=== PATIENT | female | born 1960 | race Caucasian/White ===

== ENCOUNTER → 2018-10-22 | Outpatient (REF) | payer OTHER ==
[2018-10-22 10:42] LABS: BASO % 0.5 % (0.0-1.0); EOS # 0.2 10^3/uL (0.0-0.50); EOS % 2.8 % (0.0-3.0); HEMATOCRIT 45.1 % (36.0-47.0); HEMOGLOBIN 14.4 g/dl (12.0-15.5); LYMPH # 1.5 10^3/uL (1.5-4.5); LYMPH % 25.2 % (24.0-44.0); MEAN CORPUSCULAR HGB CONC 31.9 g/dl (32.0-36.5); MONO # 0.4 10^3/uL (0.0-0.8); MONO % 7.1 % (0.0-5.0); NEUTROPHILS # 3.9 10^3/uL (1.8-7.7); NEUTROPHILS % 64.1 % (36.0-66.0); PLATELET COUNT, AUTOMATED 246 10^3/uL (150-450); WHITE BLOOD COUNT 6.1 10^3/uL (4.0-10.0)
[2018-10-22 11:22] LABS: ALBUMIN 3.7 GM/DL (3.2-5.2); ALT/SGPT 28 U/L (12-78); BILIRUBIN,TOTAL 0.3 MG/DL (0.2-1.0); BLOOD UREA NITROGEN 17 MG/DL (7-18); CALCIUM LEVEL 9.5 MG/DL (8.8-10.2); CARBON DIOXIDE LEVEL 30 MEQ/L (21-32); CHLORIDE LEVEL 108 MEQ/L (98-107); CHOLESTEROL LEVEL 233 MG/DL (<200); CHOLESTEROL RISK RATIO 4.854 (<5); CREATININE FOR GFR 0.94 MG/DL (0.55-1.30); FREE T4 0.94 NG/DL (0.76-1.46); GLOMERULAR FILTRATION RATE > 60.0 (>45); GLUCOSE, FASTING 79 MG/DL (70-100); HDL CHOLESTEROL 48 MG/DL (>40); LDL CHOLESTEROL 146 MG/DL (<100); NON-HDL-C 185 MG/DL; POTASSIUM SERUM 4.6 MEQ/L (3.5-5.1); SODIUM LEVEL 141 MEQ/L (136-145); TOTAL PROTEIN 7.6 GM/DL (6.4-8.2); TRIGLYCERIDES LEVEL 196 MG/DL (<150)
[2018-10-22 11:38] LABS: HEMOGLOBIN A1c 5.7 %
== END ==
LOC: M SFHCPLAZ 08:15
PROVIDERS: ATTEND Physician Assistant Medical
DX: Z12.11 Encounter for screening for malignant neoplasm of colon (principal); Z13.220 Encounter for screening for lipoid disorders; E66.01 Morbid (severe) obesity due to excess calories

== ENCOUNTER → 2018-11-02 | Outpatient (CLI) | payer OTHER ==
--- NOTE | 2018-11-02 13:30 | REP ---
BILATERAL SCREENING DIGITAL MAMMOGRAM WITH 3D TOMOSYNTHESIS: There are no palpable abnormalities or other breast complaints. The the patient states she has not had a clinical breast examination in over a year. The the patient states she performs self-breast examinations 10 times per year. The Tyrer-Cuzick Score is: 7.6% . Comparison is 08/01/2008. There are scattered areas of fibroglandular density. There is no dominant mass, micro calcific cluster or architectural distortion that would indicate malignancy. There are no additional findings on 3D tomosynthesiss. There is no change from the prior study. Impression: BIRADS/ACR category 1 mammogram. Negative. Recommendation: Routine annual screening mammography. This mammogram was interpreted with the aid of a FDA approved computer-aided detection system. A. Negative mammogram reports should not delay biopsy if a dominant or clinically suspicious mass is present. B. Not all breast cancers are identified by mammography or tomosynthesis. C. Adenosis and dense breasts may obscure an underlying neoplasm. Patient letter M1. Electronically Signed by Miguel Jett MD 11/02/2018 01:22 P
== END ==
LOC: M WHC 12:16
PROVIDERS: ATTEND Physician Assistant Medical
DX: Z12.31 Encounter for screening mammogram for malignant neoplasm of breast (principal)

== ENCOUNTER 2018-12-25 07:38 | Day surgery (SDC) | payer OTHER ==
[~2018-12-25] VITALS: Ht 162.6 cm; Wt 132.9 kg
[~2018-12-25 07:38] MED LIST: ATOR1TAB21 PO; NS 1,000 ML IV ONE
[2018-12-25] MEDS ORDERED: PROPOFOL 500 MG/50 ML VIAL As Ordered ONE (09:39)
[2018-12-25] MEDS ORDERED: LIDOCAINE 2% INJ 100 MG/5 ML SDV (FOR ANES.) As Ordered ONE (09:39)
--- NOTE | 2018-12-25 09:56 | ROOR ---
Patient Name: Torri Cm Procedure Date: 12/25/2018 9:06 AM Date of : 1960 Age: 58 Room: [facility] Gender: Female Note Status: Finalized Procedure: Colonoscopy Indications: Screening for colorectal malignant neoplasm Providers: Robin Gonsales MD Referring MD: Tanya ANDREWS Requesting Provider: Medicines: Monitored Anesthesia Care Complications: No immediate complications. Procedure: Pre-Anesthesia Assessment: - Prior to the procedure, a History and Physical was performed, and patient medications and allergies were reviewed. The patient is competent. The risks and benefits of the procedure and the sedation options and risks were discussed with the patient. All questions were answered and informed consent was obtained. Patient identification and proposed procedure were verified by the physician, the nurse and the anesthesiologist in the procedure room. Mental Status Examination: alert and oriented. Airway Examination: normal oropharyngeal airway and neck mobility. Respiratory Examination: clear to auscultation. CV Examination: normal. Prophylactic Antibiotics: The patient does not require prophylactic antibiotics. Prior Anticoagulants: The patient has taken no previous anticoagulant or antiplatelet agents. ASA Grade Assessment: III - A patient with severe systemic disease. After reviewing the risks and benefits, the patient was deemed in satisfactory condition to undergo the procedure. The anesthesia plan was to use monitored anesthesia care (MAC). Immediately prior to administration of medications, the patient was re-assessed for adequacy to receive sedatives. The heart rate, respiratory rate, oxygen saturations, blood pressure, adequacy of pulmonary ventilation, and response to care were monitored throughout the procedure. The physical status of the patient was re-assessed after the procedure. The Colonoscope was introduced through the anus and advanced to the cecum, identified by appendiceal orifice and ileocecal valve. The colonoscopy was performed without difficulty. The patient tolerated the procedure well. The quality of the bowel preparation was good. The ileocecal valve, appendiceal orifice, and rectum were photographed. Scope insertion time was 5 minutes. Scope withdrawal time was 10 minutes. The total duration of the procedure was 15 minutes. Findings: The perianal and digital rectal examinations were normal. A 8 mm polyp was found in the ascending colon. The polyp was sessile. The polyp was removed with a cold snare. Resection and retrieval were complete. Verification of patient identification for the specimen was done by the physician and nurse using the patient's name, date and medical record number. Estimated blood loss was minimal. A 6 mm polyp was found in the transverse colon. The polyp was sessile. The polyp was removed with a cold snare. Resection and retrieval were complete. Three sessile polyps were found in the recto-sigmoid colon. The polyps were 4 to 5 mm in size. These polyps were removed with a cold snare. Resection and retrieval were complete. Multiple small and large-mouthed diverticula were found from sigmoid to descending colon. There was no evidence of diverticular bleeding. Non-bleeding external and internal hemorrhoids were found during retroflexion. The hemorrhoids were medium-sized. Impression: - One 8 mm polyp in the ascending colon, removed with a cold snare. Resected and retrieved. - One 6 mm polyp in the transverse colon, removed with a cold snare. Resected and retrieved. - Three 4 to 5 mm polyps at the recto-sigmoid colon, removed with a cold snare. Resected and retrieved. - Moderate diverticulosis from sigmoid to descending colon. There was no evidence of diverticular bleeding. - Non-bleeding external and internal hemorrhoids. Recommendation: - Patient has a contact number available for emergencies. The signs and symptoms of potential delayed complications were discussed with the patient. Return to normal activities tomorrow. Written discharge instructions were provided to the patient. - High fiber diet. - Continue present medications. - Await pathology results. - Repeat colonoscopy in 3 - 5 years for surveillance based on pathology results. - Telephone GI clinic for pathology results in 2 weeks. - Return to primary care physician. Robin Gonsales MD Robin Gonsales MD 12/25/2018 9:55:58 AM Electronically signed by Robin Gonsales MD Number of Addenda: 0 Note Initiated On: 12/25/2018 9:06 AM Estimated Blood Loss: Estimated blood loss was minimal.
[2018-12-25 10:15] VITALS: BP 189/89
== END 2018-12-25 10:33 | disposition home or self-care (01) ==
LOC: M OPP 07:38
PROVIDERS: ATTEND Internal Medicine Gastroenterology
DX: Z12.11 Encounter for screening for malignant neoplasm of colon (principal); K63.5 Polyp of colon; K64.8 Other hemorrhoids; K57.30 Diverticulosis of large intestine without perforation or abscess without bleeding; E11.9 Type 2 diabetes mellitus without complications; Z79.899 Other long term (current) drug therapy

== ENCOUNTER → 2019-02-19 | Outpatient (REF) | payer OTHER ==
[~2019-02-19] MED LIST changes: -NS 1,000 ML IV ONE
[2019-02-19 11:14] LABS: ALBUMIN 3.4 GM/DL (3.2-5.2); ALT/SGPT 27 U/L (12-78); BILIRUBIN,TOTAL 0.4 MG/DL (0.2-1.0); BLOOD UREA NITROGEN 22 MG/DL (7-18); CALCIUM LEVEL 9.3 MG/DL (8.8-10.2); CARBON DIOXIDE LEVEL 30 MEQ/L (21-32); CHLORIDE LEVEL 108 MEQ/L (98-107); CHOLESTEROL LEVEL 178 MG/DL (<200); CHOLESTEROL RISK RATIO 3.236 (<5); CPK CREATINE PHOSPHOKINASE 97 U/L (26-192); CREATININE FOR GFR 0.95 MG/DL (0.55-1.30); GLOMERULAR FILTRATION RATE > 60.0 (>45); GLUCOSE, FASTING 87 MG/DL (70-100); HDL CHOLESTEROL 55 MG/DL (>40); LDL CHOLESTEROL 91 MG/DL (<100); NON-HDL-C 123 MG/DL; POTASSIUM SERUM 4.4 MEQ/L (3.5-5.1); SODIUM LEVEL 143 MEQ/L (136-145); TOTAL PROTEIN 7.2 GM/DL (6.4-8.2); TRIGLYCERIDES LEVEL 159 MG/DL (<150)
[2019-02-19 11:27] LABS: HEMOGLOBIN A1c 5.6 %
== END ==
LOC: M SFHCPLAZ 08:16
PROVIDERS: ATTEND Physician Assistant Medical
DX: E78.2 Mixed hyperlipidemia (principal); E66.01 Morbid (severe) obesity due to excess calories

== ENCOUNTER → 2019-11-12 | Emergency (ER) | payer OTHER ==
[~2019-11-12] MED LIST changes: +CEPHALEXIN 500 MG CAP As Ordered ONE; +CEPHALEXIN 500 MG CAP ONE
[2019-12-10 12:07] LABS: BASO % 0.4 % (0.0-1.0); EOS # 0.2 10^3/uL (0.0-0.5); HEMATOCRIT 43.3 % (36.0-47.0); HEMOGLOBIN 13.4 g/dl (12.0-15.5); LYMPH % 25.9 % (24.0-44.0); MEAN CORPUSCULAR HEMOGLOBIN 28.8 pg (27.0-33.0); MEAN CORPUSCULAR HGB CONC 30.9 g/dl (32.0-36.5); MEAN CORPUSCULAR VOLUME 93.1 fl (80.0-96.0); MONO # 0.7 10^3/uL (0.0-0.8); MONO % 9.5 % (0.0-5.0); NEUTROPHILS # 4.9 10^3/uL (1.5-8.5); NEUTROPHILS % 62.1 % (36.0-66.0); PLATELET COUNT, AUTOMATED 224 10^3/uL (150-450); RED BLOOD COUNT 4.65 10^6/uL (4.00-5.40); WHITE BLOOD COUNT 7.8 10^3/uL (4.0-10.0)
[2019-12-10 12:17] LABS: ERYTHROCYTE SEDIMENTATION RATE 33 mm/hr (0-30)
[2019-12-19 15:00] LABS: ALBUMIN 3.7 GM/DL (3.2-5.2); ALT/SGPT 25 U/L (12-78); BILIRUBIN,DIRECT 0.1 MG/DL (0.0-0.2); BILIRUBIN,TOTAL 0.1 MG/DL (0.2-1.0); BLOOD UREA NITROGEN 19 MG/DL (7-18); CALCIUM LEVEL 9.5 MG/DL (8.8-10.2); CARBON DIOXIDE LEVEL 32 MEQ/L (21-32); CHLORIDE LEVEL 109 MEQ/L (98-107); CREATININE FOR GFR 0.92 MG/DL (0.55-1.30); GLOMERULAR FILTRATION RATE > 60.0 (>45); GLUCOSE, FASTING 85 MG/DL (70-100); POTASSIUM SERUM 4.9 MEQ/L (3.5-5.1); SODIUM LEVEL 139 MEQ/L (136-145); TOTAL PROTEIN 7.5 GM/DL (6.4-8.2)
== END | disposition home or self-care (01) ==
LOC: M ED 18:50
DX: L03.115 Cellulitis of right lower limb (principal); E78.5 Hyperlipidemia, unspecified; Z79.899 Other long term (current) drug therapy

== ENCOUNTER → 2020-02-25 | Outpatient (REF) | payer OTHER ==
[~2020-02-25] MED LIST changes: -CEPHALEXIN 500 MG CAP As Ordered ONE; -CEPHALEXIN 500 MG CAP ONE
[2020-02-25 14:04] LABS: BASO # 0.1 10^3/uL (0.0-0.2); BASO % 0.7 % (0.0-1.0); EOS # 0.2 10^3/uL (0.0-0.5); EOS % 2.3 % (0.0-3.0); HEMATOCRIT 43.3 % (36.0-47.0); HEMOGLOBIN 13.3 g/dl (12.0-15.5); LYMPH # 1.9 10^3/uL (1.5-5.0); LYMPH % 25.5 % (24.0-44.0); MEAN CORPUSCULAR HEMOGLOBIN 28.7 pg (27.0-33.0); MEAN CORPUSCULAR HGB CONC 30.7 g/dl (32.0-36.5); MEAN CORPUSCULAR VOLUME 93.5 fl (80.0-96.0); MONO # 0.6 10^3/uL (0.0-0.8); MONO % 8.4 % (0.0-5.0); NEUTROPHILS # 4.7 10^3/uL (1.5-8.5); NEUTROPHILS % 62.7 % (36.0-66.0); PLATELET COUNT, AUTOMATED 218 10^3/uL (150-450); RED BLOOD COUNT 4.63 10^6/uL (4.00-5.40); WHITE BLOOD COUNT 7.5 10^3/uL (4.0-10.0)
[2020-02-25 14:22] LABS: ALBUMIN 3.4 GM/DL (3.2-5.2); BILIRUBIN,TOTAL 0.4 MG/DL (0.2-1.0); CHOLESTEROL RISK RATIO 3.717 (<5); CREATININE FOR GFR 1.02 MG/DL (0.55-1.30); FREE T4 1.07 NG/DL (0.76-1.46); GLOMERULAR FILTRATION RATE 58.5 (>45); THYROID STIMULATING HORMONE 0.838 uIU/ML (0.358-3.740); TOTAL PROTEIN 7.1 GM/DL (6.4-8.2)
== END ==
LOC: M SFHCPLAZ 11:15
PROVIDERS: ATTEND Physician Assistant Medical
DX: E78.2 Mixed hyperlipidemia (principal); R03.0 Elevated blood-pressure reading, without diagnosis of hypertension; E66.01 Morbid (severe) obesity due to excess calories; G58.9 Mononeuropathy, unspecified

== ENCOUNTER 2023-03-09 09:31 | Emergency (ER) | payer MEDICARE, OTHER, SELFPAY ==
[~2023-03-09] VITALS: Ht 162.6 cm; Wt 144.0 kg
[2023-03-09 10:44] LABS: HEMATOCRIT 46.1 % (36.0-47.0); HEMOGLOBIN 14.6 g/dl (12.0-15.5); MEAN CORPUSCULAR HEMOGLOBIN 29.3 pg (27.0-33.0); MEAN CORPUSCULAR HGB CONC 31.7 g/dl (32.0-36.5); MEAN CORPUSCULAR VOLUME 92.6 fl (80.0-96.0); PLATELET COUNT, AUTOMATED 176 10^3/uL (150-450); RED BLOOD COUNT 4.98 10^6/uL (4.00-5.40); WHITE BLOOD COUNT 5.3 10^3/uL (4.0-10.0)
[2023-03-09 11:12] LABS: ATYPICAL LYMPH 7 % (0-5); CALCIUM LEVEL 8.9 MG/DL (8.3-10.6); CREATININE FOR GFR 1.21 MG/DL (0.55-1.30); EOSINOPHILS 1 % (0-3); GLOMERULAR FILTRATION RATE 47.5 (>45); LYMPHOCYTES 28 % (16-44); MONOCYTES 12 % (0-5); MYELOCYTES 1 % (0-0); NEUTROPHILS 50 % (28-66)
[2023-03-09 11:13] LABS: FREE T4 1.17 NG/DL (0.89-1.76)
[2023-03-09 11:14] LABS: PLATELET ESTIMATE NORMAL (NORMAL); THYROID STIMULATING HORMONE 0.967 uIU/ML (0.55-4.78)
[2023-03-09] MEDS ORDERED: NS 500 ML IV ONE (12:20)
[2023-03-09 13:30] VITALS: BP 164/77; O2SAT 95
[2023-03-09] MEDS ORDERED: CHLO125TA PO (13:46)
[2023-03-09 13:54] VITALS: TEMP 97.7
== END 2023-03-09 13:58 | disposition home or self-care (01) ==
LOC: M ED 09:31
DX: J11.1 Influenza due to unidentified influenza virus with other respiratory manifestations (principal); H81.399 Other peripheral vertigo, unspecified ear; I49.3 Ventricular premature depolarization; I25.2 Old myocardial infarction; I45.10 Unspecified right bundle-branch block; Z87.891 Personal history of nicotine dependence; Z82.49 Family history of ischemic heart disease and other diseases of the circulatory system; Z80.9 Family history of malignant neoplasm, unspecified

== ENCOUNTER 2023-03-27 09:23 | Inpatient (IN) | payer MEDICARE, SELFPAY ==
[~2023-03-27] VITALS: Ht 162.6 cm; Wt 140.6 kg
[~2023-03-27 09:23] MED LIST changes: +CHLO125TA PO
[2023-03-27 10:22] LABS: BASO % 0.3 % (0.0-1.0); EOS # 0.1 10^3/uL (0.0-0.5); EOS % 0.9 % (0.0-3.0); HEMATOCRIT 43.2 % (36.0-47.0); HEMOGLOBIN 14.1 g/dl (12.0-15.5); LYMPH # 1.1 10^3/uL (1.5-5.0); LYMPH % 10.8 % (24.0-44.0); MEAN CORPUSCULAR HEMOGLOBIN 29.7 pg (27.0-33.0); MEAN CORPUSCULAR HGB CONC 32.6 g/dl (32.0-36.5); MEAN CORPUSCULAR VOLUME 91.1 fl (80.0-96.0); MONO # 0.9 10^3/uL (0.0-0.8); MONO % 8.7 % (2.0-8.0); NEUTROPHILS # 7.8 10^3/uL (1.5-8.5); NEUTROPHILS % 78.9 % (36.0-66.0); PLATELET COUNT, AUTOMATED 214 10^3/uL (150-450); RED BLOOD COUNT 4.74 10^6/uL (4.00-5.40); WHITE BLOOD COUNT 9.8 10^3/uL (4.0-10.0)
[2023-03-27 11:33] LABS: CK-MB VALUE MASS < 1.0 NG/ML (<3.6)
[2023-03-27 11:51] LABS: CK-MB VALUE MASS < 1.0 NG/ML (<3.6); LIPASE 41 U/L (12-53)
[2023-03-27 11:53] LABS: ALBUMIN 3.1 G/DL (3.2-5.2); ALKALINE PHOSPHATASE 90 U/L (46-116); ALT/SGPT 21 U/L (7.0-40); AST/SGOT 28 U/L (<34); BILIRUBIN,DIRECT 0.2 MG/DL (<0.4); BILIRUBIN,TOTAL 0.5 MG/DL (0.3-1.2)
[2023-03-27 12:30] LABS: BLOOD UREA NITROGEN 21 MG/DL (9-23); CALCIUM LEVEL 9.9 MG/DL (8.3-10.6); CARBON DIOXIDE LEVEL 23 MMOL/L (20-31); CHLORIDE LEVEL 106 MMOL/L (98-107); CPK CREATINE PHOSPHOKINASE 33 U/L (34-145); CREATININE FOR GFR 0.93 MG/DL (0.55-1.30); GLOMERULAR FILTRATION RATE > 60.0 (>45); GLUCOSE, FASTING 115 MG/DL (74-106); MB/CK RELATIVE INDEX 3.03 (< OR =4); POTASSIUM SERUM 4.4 MMOL/L (3.5-5.1); SODIUM LEVEL 138 MMOL/L (136-145)
[2023-03-27 12:32] LABS: CPK CREATINE PHOSPHOKINASE 43 U/L (34-145); MB/CK RELATIVE INDEX 2.32 (< OR =4)
[2023-03-27] MEDS ORDERED: ISOVUE-370 76% 100ML VIAL As Ordered ONE (12:55)
[2023-03-27] MEDS ORDERED: HEPARIN SOD (PORCINE) 5000UNITS/ML 1ML VIAL/SYRINGE IV ONE (14:40)
[2023-03-27] MEDS ORDERED: HEPARIN SOD (PORCINE) 5000UNITS/ML 1ML VIAL/SYRINGE IV PRN ×2 (14:40→15:45)
[2023-03-27] MEDS ORDERED: HEPARIN DRIP 25,000 UNITS in IV 1 EA IV SCH (14:40)
[2023-03-27 14:56] LABS: INR 1.18; PROTHROMBIN TIME 14.7 SECONDS (12.5-14.5)
[2023-03-27 14:57] LABS: PARTIAL THROMBOPLASTIN TIME 26.8 SECONDS (24.8-34.2)
[2023-03-27] MEDS ORDERED: MOM 30ML SUSPENSION UDC PO PRN (15:40)
[2023-03-27] MEDS ORDERED: ACETAMINOPHEN TAB 650MG DOSE (2X325MG) PO PRN (15:40)
[2023-03-27] MEDS ORDERED: MED REC IN PROGRESS XX SCH (16:00)
[2023-03-27 16:09] LABS: CHOLESTEROL LEVEL 182 MG/DL (<200); CHOLESTEROL RISK RATIO 4.41 (<5); HDL CHOLESTEROL 41.2 MG/DL (>40); LDL CHOLESTEROL 117.6 MG/DL (<100); NON-HDL-C 140.8 MG/DL; TRIGLYCERIDES LEVEL 116 MG/DL (<150)
[2023-03-27] MEDS ORDERED: CHLO125TA PO (16:13)
[2023-03-27] MEDS ORDERED: HOME MED LIST COMPLETE! XX SCH (16:15)
[2023-03-27 18:39] LABS: HEMATOCRIT 43.4 % (36.0-47.0); HEMOGLOBIN 13.7 g/dl (12.0-15.5); MEAN CORPUSCULAR HEMOGLOBIN 29.4 pg (27.0-33.0); MEAN CORPUSCULAR HGB CONC 31.6 g/dl (32.0-36.5); MEAN CORPUSCULAR VOLUME 93.1 fl (80.0-96.0); PLATELET COUNT, AUTOMATED 241 10^3/uL (150-450); RED BLOOD COUNT 4.66 10^6/uL (4.00-5.40); WHITE BLOOD COUNT 11.8 10^3/uL (4.0-10.0)
[2023-03-27 18:54] LABS: HEMOGLOBIN A1c 5.6 % (4.0-6.0)
[2023-03-27 20:40] VITALS: BP 127/76; PULSE 88; TEMP 99.2; O2SAT 96
[2023-03-27] MEDS: DOCUSATE SODIUM 100MG CAPSULE PO SCH (23:19)
[2023-03-28] VITALS (11 sets, daily range): BP systolic 107–143; BP diastolic 56–89; PULSE 84–90; TEMP 97.2–98.1; O2SAT 90–98
[2023-03-28 00:45] LABS: INR 1.18; PROTHROMBIN TIME 14.6 SECONDS (12.5-14.5)
[2023-03-28 00:46] LABS: PARTIAL THROMBOPLASTIN TIME 58.1 SECONDS (24.8-34.2)
[2023-03-28] MEDS: HEPARIN DRIP 25,000 UNITS in IV 1 EA IV SCH ×2 (02:21→15:13)
[2023-03-28 05:52] LABS: HEMATOCRIT 41.4 % (36.0-47.0); HEMOGLOBIN 13.8 g/dl (12.0-15.5); MEAN CORPUSCULAR HEMOGLOBIN 30.2 pg (27.0-33.0); MEAN CORPUSCULAR HGB CONC 33.3 g/dl (32.0-36.5); MEAN CORPUSCULAR VOLUME 90.6 fl (80.0-96.0); PLATELET COUNT, AUTOMATED 238 10^3/uL (150-450); RED BLOOD COUNT 4.57 10^6/uL (4.00-5.40); WHITE BLOOD COUNT 10.4 10^3/uL (4.0-10.0)
[2023-03-28 06:02] LABS: INR 1.17; PROTHROMBIN TIME 14.6 SECONDS (12.5-14.5)
[2023-03-28 06:03] LABS: PARTIAL THROMBOPLASTIN TIME 59.8 SECONDS (24.8-34.2)
[2023-03-28 06:30] LABS: BLOOD UREA NITROGEN 17 MG/DL (9-23); CALCIUM LEVEL 9.5 MG/DL (8.3-10.6); CARBON DIOXIDE LEVEL 24 MMOL/L (20-31); CHLORIDE LEVEL 106 MMOL/L (98-107); CREATININE FOR GFR 0.93 MG/DL (0.55-1.30); GLOMERULAR FILTRATION RATE > 60.0 (>45); GLUCOSE, FASTING 114 MG/DL (74-106); POTASSIUM SERUM 4.5 MMOL/L (3.5-5.1); SODIUM LEVEL 140 MMOL/L (136-145)
[2023-03-28] MEDS ORDERED: ISOVUE-300 61% 100ML VIAL As Ordered ONE (08:43)
[2023-03-28] MEDS ORDERED: LIDOCAINE 1% MDV 20ML VIAL As Ordered ONE (08:43)
[2023-03-28] MEDS ORDERED: MIDAZOLAM INJ 2MG/2ML VIAL As Ordered ONE (09:17)
[2023-03-28] MEDS ORDERED: fentaNYL 100 MCG/2 ML INJECTION As Ordered ONE (09:17)
[2023-03-28] MEDS ORDERED: HEPARIN 1,000UNITS/ML 10ML VIAL (FOR RADIOLOGY & DIALYSIS ONLY) As Ordered ONE (09:53)
[2023-03-28 10:57] LABS: DRVV SCREEN 50.6 SECONDS
[2023-03-28 11:02] LABS: PTT LUPUS TYPE ANTICOAG SCREEN 1.28 (0-1.20)
[2023-03-28 11:08] LABS: DRVV CONFIRM 42.2 SECONDS; LUPUS CONFIRM RATIO 1.12
[2023-03-28 11:11] LABS: NORMALIZED RATIO 1.14 (0.00-1.20)
[2023-03-28] MEDS: DOCUSATE SODIUM 100MG CAPSULE PO SCH ×2 (13:00→21:00)
[2023-03-29 00:10] VITALS: BP 123/57; TEMP 97.4; O2SAT 100
[2023-03-29] MEDS: HEPARIN DRIP 25,000 UNITS in IV 1 EA IV SCH (02:47)
[2023-03-29 03:25] VITALS: BP 135/60; TEMP 97.6; O2SAT 93
[2023-03-29 07:48] VITALS: BP 131/76; TEMP 97; O2SAT 94
[2023-03-29] MEDS ORDERED: APIXABAN 5 MG TAB (ELIQUIS) PO SCH (09:00)
[2023-03-29] MEDS: DOCUSATE SODIUM 100MG CAPSULE PO SCH (09:00)
[2023-03-29 09:08] LABS: BASO % 0.3 % (0.0-1.0); EOS # 0.1 10^3/uL (0.0-0.5); EOS % 1.3 % (0.0-3.0); HEMATOCRIT 38.5 % (36.0-47.0); HEMOGLOBIN 12.4 g/dl (12.0-15.5); LYMPH # 1.7 10^3/uL (1.5-5.0); LYMPH % 18.8 % (24.0-44.0); MEAN CORPUSCULAR HEMOGLOBIN 29.4 pg (27.0-33.0); MEAN CORPUSCULAR HGB CONC 32.2 g/dl (32.0-36.5); MEAN CORPUSCULAR VOLUME 91.2 fl (80.0-96.0); MONO # 0.8 10^3/uL (0.0-0.8); MONO % 9.2 % (2.0-8.0); NEUTROPHILS # 6.1 10^3/uL (1.5-8.5); NEUTROPHILS % 69.9 % (36.0-66.0); PLATELET COUNT, AUTOMATED 235 10^3/uL (150-450); RED BLOOD COUNT 4.22 10^6/uL (4.00-5.40); WHITE BLOOD COUNT 8.8 10^3/uL (4.0-10.0)
[2023-03-29] MEDS ORDERED: ELIQ5TAB PO (09:24)
[2023-03-29 11:49] VITALS: BP 148/70; TEMP 97.9; O2SAT 93
[2023-03-29 14:00] VITALS: BP 138/75
== END 2023-03-29 15:40 | disposition home or self-care (01) | DRG 163 ==
LOC: M ED 09:23 → M ED INP 15:36 → M PCU 20:05
PROVIDERS: ADMIT Student in an Organized Health Care Education/Training Program; ATTEND Student in an Organized Health Care Education/Training Program
PROC: 02CQ3ZZ Extirpation of Matter from Right Pulmonary Artery, Percutaneous Approach (ICD-10-PCS; 2023-03-28)
PROC: 02CR3ZZ Extirpation of Matter from Left Pulmonary Artery, Percutaneous Approach (ICD-10-PCS; principal; 2023-03-28 08:30)
DX: I26.92 Saddle embolus of pulmonary artery without acute cor pulmonale (principal); I21.A1 Myocardial infarction type 2; I82.432 Acute embolism and thrombosis of left popliteal vein; E66.01 Morbid (severe) obesity due to excess calories; E78.5 Hyperlipidemia, unspecified; I10 Essential (primary) hypertension; K57.90 Diverticulosis of intestine, part unspecified, without perforation or abscess without bleeding; Z87.891 Personal history of nicotine dependence

== ENCOUNTER → 2023-05-18 | Outpatient (CLI) | payer MEDICARE, SELFPAY ==
[~2023-05-18] MED LIST changes: +ELIQ5TAB PO
== END ==
LOC: M WHC 12:58
PROVIDERS: ATTEND Pediatrics
DX: Z12.31 Encounter for screening mammogram for malignant neoplasm of breast (principal); Z13.820 Encounter for screening for osteoporosis; M85.851 Other specified disorders of bone density and structure, right thigh; M85.852 Other specified disorders of bone density and structure, left thigh

== ENCOUNTER → 2023-05-25 | Outpatient (CLI) | payer MEDICARE, SELFPAY | LOC: M CARPUL 10:17 | PROVIDERS: ATTEND Pediatrics | DX: I26.92 Saddle embolus of pulmonary artery without acute cor pulmonale (principal); I51.7 Cardiomegaly ==

== ENCOUNTER → 2023-06-26 | Outpatient (REF) | payer SELFPAY, BC ==
[2023-06-26 18:29] LABS: BLOOD UREA NITROGEN 23 MG/DL (9-23); CALCIUM LEVEL 10.4 MG/DL (8.3-10.6); CARBON DIOXIDE LEVEL 32 MMOL/L (20-31); CHLORIDE LEVEL 102 MMOL/L (98-107); CREATININE FOR GFR 0.93 MG/DL (0.55-1.30); GLOMERULAR FILTRATION RATE > 60.0 (>45); GLUCOSE, FASTING 116 MG/DL (74-106); POTASSIUM SERUM 3.9 MMOL/L (3.5-5.1); SODIUM LEVEL 139 MMOL/L (136-145)
[2023-06-26 18:31] LABS: HEMOGLOBIN A1c 5.4 % (4.0-6.0); THYROID STIMULATING HORMONE 1.247 uIU/ML (0.55-4.78)
== END ==
LOC: M LAB REF 17:38
PROVIDERS: ATTEND Pediatrics
DX: I10 Essential (primary) hypertension (principal); Z68.43 Body mass index [BMI] 50.0-59.9, adult; E66.01 Morbid (severe) obesity due to excess calories

== ENCOUNTER → 2023-09-15 | Outpatient (REF) | payer SELFPAY, BC ==
[~2023-09-15] MED LIST changes: +LOSA25TA13 PO
[2023-09-15 20:19] LABS: CREATININE, URINE 65.1 MG/DL; MAU/CREAT RATIO 193.5 MCG/MG (0.0-30.0)
== END ==
LOC: M LAB REF 17:52
PROVIDERS: ATTEND Pediatrics
DX: R80.9 Proteinuria, unspecified (principal)

== ENCOUNTER → 2023-12-29 | Outpatient (REF) | payer SELFPAY, BC ==
[2023-12-29 17:53] LABS: CREATININE, URINE 143.4 MG/DL; MAU/CREAT RATIO 103.9 MCG/MG (0.0-30.0)
== END ==
LOC: M LAB REF 16:27
PROVIDERS: ATTEND Pediatrics
DX: R80.9 Proteinuria, unspecified (principal)

== ENCOUNTER 2024-01-30 17:20 | Emergency (ER) | payer BC, MEDICAID, MEDICARE, SELFPAY ==
[~2024-01-30] VITALS: Ht 162.6 cm; Wt 143.8 kg
[2024-01-30] MEDS ORDERED: LOSA50TA28 (17:57)
[2024-01-31] MEDS ORDERED: LIDO5DIS41 TOP (00:50)
[2024-01-31] MEDS: LIDOCAINE 5% (LIDODERM) PATCH TD ONE (01:04)
[2024-01-31 01:14] VITALS: BP 131/75; TEMP 97.8; O2SAT 96
== END 2024-01-31 01:38 | disposition home or self-care (01) ==
LOC: M ED 17:20
DX: S83.91XA Sprain of unspecified site of right knee, initial encounter (principal); X50.0XXA Overexertion from strenuous movement or load, initial encounter; K57.90 Diverticulosis of intestine, part unspecified, without perforation or abscess without bleeding; E78.5 Hyperlipidemia, unspecified; Y92.009 Unspecified place in unspecified non-institutional (private) residence as the place of occurrence of the external cause; Y93.89 Activity, other specified; Y99.9 Unspecified external cause status; Z79.01 Long term (current) use of anticoagulants; Z79.899 Other long term (current) drug therapy; Z86.711 Personal history of pulmonary embolism

== ENCOUNTER → 2024-02-06 | Outpatient (REF) | payer SELFPAY ==
[~2024-02-06] MED LIST changes: +LIDO5DIS41 TOP; +LOSA50TA28
[2024-02-06 14:29] LABS: CREATININE, URINE 53.5 MG/DL
== END ==
LOC: M LAB REF 13:22
PROVIDERS: ATTEND Pediatrics
DX: R80.9 Proteinuria, unspecified (principal)

== ENCOUNTER → 2024-04-15 | Outpatient (REF) | payer SELFPAY ==
[2024-04-15 17:40] LABS: CREATININE, URINE 97.3 MG/DL; MAU/CREAT RATIO 153.1 MCG/MG (0.0-30.0)
[2024-04-15 18:39] LABS: BLOOD UREA NITROGEN 26 MG/DL (9-23); CALCIUM LEVEL 10.3 MG/DL (8.3-10.6); CARBON DIOXIDE LEVEL 28 MMOL/L (20-31); CHLORIDE LEVEL 105 MMOL/L (98-107); CREATININE FOR GFR 0.95 MG/DL (0.55-1.30); GLOMERULAR FILTRATION RATE > 60.0 (>45); GLUCOSE, FASTING 104 MG/DL (74-106); POTASSIUM SERUM 4.1 MMOL/L (3.5-5.1); SODIUM LEVEL 141 MMOL/L (136-145)
== END ==
LOC: M LAB REF 16:16
PROVIDERS: ATTEND Pediatrics
DX: I10 Essential (primary) hypertension (principal)

== ENCOUNTER 2024-06-04 07:00 | Day surgery (SDC) | payer MEDICARE, SELFPAY ==
[~2024-06-04] VITALS: Ht 162.6 cm; Wt 145.3 kg
[~2024-06-04 07:00] MED LIST changes: +LOSA100T46 PO; -LOSA50TA28; +LOSA50TA28 PO
[2024-06-04] MEDS ORDERED: GLYCOPYRROLATE INJ 0.2 MG/ML 2 ML VIAL As Ordered ONE (08:18)
[2024-06-04] MEDS ORDERED: propofoL 200 MG/20 ML VIAL As Ordered ONE (08:18)
[2024-06-04] MEDS ORDERED: LIDOCAINE 2% 100MG/5ML SDV (FOR ANES.) As Ordered ONE (08:18)
[2024-06-04 08:45] VITALS: BP 126/63; TEMP 97.3; O2SAT 95
== END 2024-06-04 09:02 | disposition home or self-care (01) ==
LOC: M OPP 07:00
PROVIDERS: ATTEND Internal Medicine Gastroenterology
DX: Z12.11 Encounter for screening for malignant neoplasm of colon (principal); D12.4 Benign neoplasm of descending colon; K57.30 Diverticulosis of large intestine without perforation or abscess without bleeding; K64.8 Other hemorrhoids; Z86.0100 Personal history of colon polyps, unspecified; Z79.01 Long term (current) use of anticoagulants; Z79.899 Other long term (current) drug therapy; Z86.718 Personal history of other venous thrombosis and embolism; Z86.711 Personal history of pulmonary embolism
CPT/HCPCS: 45385; 88305; J1596

== ENCOUNTER → 2024-08-06 | Outpatient (REF) | payer MEDICARE ==
[2024-08-06 13:03] LABS: CREATININE, URINE 90.4 MG/DL; MAU/CREAT RATIO 49.7 MCG/MG (0.0-30.0)
== END ==
LOC: M LAB REF 11:56
PROVIDERS: ATTEND Pediatrics
DX: R80.9 Proteinuria, unspecified (principal)

== ENCOUNTER → 2024-11-18 | Outpatient (CLI) | payer MEDICARE ==
[~2024-11-18] MED LIST changes: +ALLE180T33 PO; +ALLE24TA7 PO; +LIDO1ADH93 TOP; -LIDO5DIS41 TOP; +TELM1TAB PO
== END ==
LOC: M WHC 14:33
PROVIDERS: ATTEND Pediatrics
DX: Z12.31 Encounter for screening mammogram for malignant neoplasm of breast (principal)

== ENCOUNTER → 2024-12-02 | Outpatient (CLI) | payer MEDICARE | LOC: M RAD 14:32 | PROVIDERS: ATTEND Pediatrics | DX: I83.892 Varicose veins of left lower extremity with other complications (principal); Z86.718 Personal history of other venous thrombosis and embolism ==